=== PATIENT | male | born 1970 | race Caucasian/White ===

== ENCOUNTER → 2020-09-28 | Outpatient (CLI) | payer OTHER ==
--- NOTE | 2020-09-29 01:07 | KCIC ---
EXAM: 3 Views Left Shoulder DATE: 09/28/2020 2:25 PM INDICATION: Reason: LEFT SHOULDER PAIN / Spl. Instructions: Chronic left shoulder pain and LROM. NKI. Worse in last 2 weeks. / History: COMPARISON: No Prior FINDINGS: There is no evidence for acute fracture or dislocation. AC joint is congruent. Sclerotic focus left h umerus likely bone island. Humeral head is not high riding. IMPRESSION: 1. No acute fracture or dislocation. Electronically signed by: Virgil Davies MD (09/29/2020 1:04 AM) YOLI
== END ==
LOC: KCIC 14:19
PROVIDERS: ATTEND Physician Assistant Medical
DX: M25.512 Pain in left shoulder (principal)
CPT/HCPCS: 73030

== ENCOUNTER → 2020-10-12 | Outpatient (CLI) | payer OTHER ==
--- NOTE | 2020-10-12 16:42 | KCIC ---
Exam is an: MRI of the left shoulder without contrast History: Left shoulder pain COMPARISON: None available TECHNIQUE: Multiplanar, multisequence MR imaging of the left shoulder performed FINDINGS: The long head of the biceps tendon within the bicipital groove. The attachment of the long head the b iceps tendon to the superior labral anchor grossly appears intact.. The attachment of the subscapular is tendon grossly appears intact. There is moderate increased signal identified in the supraspinatus, infraspinatus tendons likely tendinosis. There is small undersurface tear of the supraspinatus tendo n measuring 7.5 mm. There is cystic structure identified in the infraspinatus tendon extending along the infraspinatus probably interstitial tear measuring 2.7 cm The visualized labrum grossly appears unremarkable. Severe joint space loss identified in the glenohu meral joint, acromioclavicular joint. The acromion is type II. The visualized labrum grossly appears unremarkable. Small shoulder joint effusion is identified. There is a 1.1 cm cystic structure identified posterior humerus head likely a cyst. IMPRESSION: 1. Small undersurface tear of the supraspinatus tendon measuring 7.5 mm. 2. There is a cystic structure identified in the infraspinatus tendon extending along the infraspina tus tendon probably interstitial tear. 3. Moderate rotator cuff tendinosis. Severe degenerative changes glenohumeral joint, acromioclavicul ar joint. 4. Small shoulder joint effusion. Electronically signed by: Galileo Sharma MD (10/12/2020 4:40 PM) [id number]
== END ==
LOC: KCIC MRI 14:07
PROVIDERS: ATTEND Family Medicine
DX: M75.102 Unspecified rotator cuff tear or rupture of left shoulder, not specified as traumatic (principal); M25.412 Effusion, left shoulder; M25.312 Other instability, left shoulder
CPT/HCPCS: 73221